=== PATIENT | female | born 1995 | race Asian ===

== ENCOUNTER 2019-06-15 10:26 | Emergency (ER) | payer SELFPAY ==
[2019-06-15 10:46] VITALS: BP 124/84
--- NOTE | 2019-06-15 10:49 | ED ---
Psychiatric Complaint - HPI Summary HPI Summary: Pt is a 23 y/o F presenting to the ED via EMS for a chief complaint of suicidal ideations. Pt has taken Mirtazapine and states she only took it once since being prescribed the medication 2 days ago, because pt felt dizziness taking the medication. Pt went to [facility] on 06/15/19 after she admitted SI and told to go to the ED at 09:45. Pt had a disagreement with her parents before going to [facility]. At [facility], she cried and screamed in front of the providers. She states she is no longer having suicidal ideations. She did not take her medication on 06/14/19 because she did not feel well taking the medication. Pt denies taking any other medications. Pt denies any PMHx. Pt states she does not want bloodwork performed. - History Of Current Complaint Time Seen by Provider: 06/15/19 10:28 Hx Obtained From: Patient Onset/Duration: Sudden Onset, Resolved Timing: Minutes Severity Initially: Moderate Severity Currently: Moderate Aggravating Factor(s): Recent Stress Alleviating Factor(s): Nothing Associated Signs And Symptoms: Positive: Negative Related History: Positive For: Prior Psychiatric Issues Has Suicidal: Reports: Thoughts - Resolved Has Homicidal: Denies: Thoughts - Allergies/Home Medications Home Medications: Home Medications Mirtazapine TAB* [Remeron TAB*] 15 mg PO BEDTIME 06/15/19 [History Confirmed 11/02] PMH/Surg Hx/FS Hx/Imm Hx Previously Healthy: Yes Endocrine/Hematology History: Denies: Hx Diabetes EENT History: Denies: Hx Deafness Psychiatric History: Reports: Other Psychiatric Issues/Disorders - Surgical History Surgical History: None Surgery Procedure, Year, and Place: None Hx Anesthesia Reactions: No - Family History Known Family History: Negative: Diabetes - Social History Hx Substance Use: No Substance Use Type: Reports: None Hx Tobacco Use: No Review of Systems Negative: Fever Neurological: Other - Positive dizziness associated with Mirtazapine Positive: Other - Positive suicidal ideations, resolved All Other Systems Reviewed And Are Negative: Yes Physical Exam - Summary Physical Exam Summary: Constitutional: Well-developed, Well-nourished, Alert. (-) Distressed Skin: Warm, Dry HENT: Normocephalic; Atraumatic Eyes: Conjunctiva normal Neck: Musculoskeletal ROM normal neck. (-) JVD, (-) Stridor, (-) Nuchal rigidity Cardio: Rhythm regular, rate normal, Heart sounds normal; Intact distal pulses; Radial pulses are 2+ and symmetric. (-) Murmur Pulmonary/Chest wall: Effort normal. (-) Respiratory distress, (-) Wheezes, (-) Rales Abd: Soft, (-) tenderness, (-) Distension, (-) Guarding, (-) Rebound Musculoskeletal: (-) Edema Lymph: (-) Cervical adenopathy Neuro: Alert, Oriented x3 Psych: Mood and affect Normal. Denies current SI/HI. Triage Information Reviewed: Yes Vital Signs Reviewed: Yes Procedures - Sedation Patient Received Moderate/Deep Sedation with Procedure: No Course/Dx - Course Course Of Treatment: 23 y/o F presents for SI. - NAD, declining labs. Will have MHU see her, if warranted will get labwork afterwards. - Differential Dx/Clinical Impression Provider Diagnosis: Depression, Adjustment disorder - Physician Notifications Discussed Care Of Patient With: Ck Roman Time Discussed With Above Provider: 12:01 - Patient cleared to be discharged w diagnosis of depression Discharge ED - Sign-Out/Discharge Documenting (check all that apply): Patient Departure - Discharge - Discharge Plan Condition: Stable Disposition: HOME Referrals: [facility] [Outside] - Billing Disposition and Condition Condition: STABLE Disposition: Home - Attestation Statements Document Initiated by [place]: Yes Documenting Scribe: Nathalie Miguel Provider For Whom Wellington is Documenting (Include Credential): Stephen Pena MD. Scribe Attestation: INathalie, scribed for Stephen Pena MD. on 06/15/19 at 1336. Scribe Documentation Reviewed: Yes Provider Attestation: The documentation as recorded by the Nathalie casey accurately reflects the service I personally performed and the decisions made by , Stephen Pena MD. Status of Scribe Document: Viewed
== END 2019-06-15 12:20 | disposition home or self-care (01) ==
LOC: ED 10:26
DX: F32.9 Major depressive disorder, single episode, unspecified (principal); F43.20 Adjustment disorder, unspecified; Z79.899 Other long term (current) drug therapy
CPT/HCPCS: 99284